=== PATIENT | male | born 1955 | race Caucasian/White ===

== ENCOUNTER 2019-01-09 10:06 | Inpatient (IN) | payer MEDICARE ==
[~2019-01-09] VITALS: Ht 172.7 cm; Wt 68.0 kg
--- NOTE | 2019-01-09 02:00 | NUR ---
Pt pulled out both IV access, refused staffs to put in a new IV. Pt continue to get up by himself without calling for assistance and continue to become agitated when staffs go in and help. Dr. Powell notified regarding pt's condition. Haldol IM x1 was ordered but not given yet at this time. At this time, pt woke up and asked for his night medications, continue to be agitated. He stated that if he gets his medication now, he will get better sleep. RN end up giving pt his haldol PO and singular PO. Pt went back to bed and made comfortable in bed. Andre give the okay to leave IV out for tonight and let pt calm down. Will continue to monitor pt closely.
[2019-01-09] MEDS ORDERED: IV NORMAL SALINE 1000ML BAG 1,000 ML IV SCH ×2 (10:26→17:00)
[2019-01-09] MEDS ORDERED: VANCOMYCIN 1GM IVPB FOR OMNI 250 ML IV ONE (10:30)
[2019-01-09] MEDS ORDERED: IV NORMAL SALINE 500ML BAG 500 ML IV ONE (10:30)
[2019-01-09 10:44] LABS: BASO % 0 % (0-3); EOS % 0 % (0-3); HEMATOCRIT 38.7 % (39.0-53.0); HEMOGLOBIN 13.7 g/dL (13.0-17.5); LYMPH # 0.4 x10^3/uL (1.0-4.8); LYMPH % 3 % (24-48); MEAN CORPUSCULAR HEMOGLOBIN 32 pg (25-35); MEAN CORPUSCULAR HGB CONC 36 g/dL (31-37); MEAN CORPUSCULAR VOLUME 91 fL (79-100); MONO # 1.9 x10^3/uL (0.0-1.1); MONO % 13 % (0-9); NEUT # 11.7 x10^3uL (1.8-7.7); NEUT % 84 % (31-73); PLATELET COUNT 182 x10^3/uL (140-400); RED BLOOD COUNT 4.26 x10^6/uL (4.30-5.70); RED CELL DISTRIBUTION WIDTH 13.9 % (11.5-14.5)
[2019-01-09] MEDS ORDERED: CARB200T PO (10:51)
[2019-01-09] MEDS ORDERED: DIPH25TA22 PO (10:51)
[2019-01-09] MEDS ORDERED: HALO10TA PO ×2 (10:51)
[2019-01-09] MEDS ORDERED: BENZOTROPINE PO (10:51)
--- NOTE | 2019-01-09 10:51 | PHYS DOC ---
Past Medical History Past Medical History: Schizophrenia Smoking: Cigarettes Adult General Chief Complaint Chief Complaint: ALTERED MENTAL STATUS HPI HPI Patient is a 63 year old male with history of schizophrenia who brought in by EMS because of altered level of consciousness. Patient used to be homeless and for the last 6 months was admitted to [facility] and usually walk with mild stumbling related to his eyesight problem with plan of cataract surgery on January 14. Patient had urinary frequency since last night and this morning did not acting like his usual and was disoriented and had problem with his walking according to reports of mental facility staff. Patient is oriented 1 and unable to give history. Review of Systems Review of Systems Unable to obtain because of mental and medical condition Current Medications Current Medications Current Medications Medications (Trade) Dose Ordered Sig/Robbi Start Time Stop Time Status Last Admin Dose Admin Acetaminophen (Tylenol) 1,000 mg 1X ONCE 01/09/19 11:00 01/09/19 11:01 DC 01/09/19 10:44 1,000 MG Nicotine (Nicoderm Cq 21mg) 1 patch 1X STAT 01/09/19 11:28 01/09/19 11:31 DC 01/09/19 11:52 1 PATCH Piperacillin Sod/ Tazobactam Sod 3.375 gm/Sodium Chloride 50 ml @ 100 mls/hr 1X ONCE 01/09/19 11:00 01/09/19 11:29 DC 01/09/19 10:43 100 MLS/HR Sodium Chloride 500 ml @ 500 mls/hr 1X ONCE 01/09/19 10:30 01/09/19 11:29 DC 01/09/19 10:30 500 MLS/HR Vancomycin HCl 1.75 gm/Sodium Chloride 500 ml @ 250 mls/hr 1X ONCE 01/09/19 11:30 01/09/19 13:29 DC 01/09/19 10:44 250 MLS/HR Allergies Allergies Allergies Coded Allergies Type Severity Reaction Last Updated Verified No Known Drug Allergies 01/09/19 No Physical Exam Physical Exam Constitutional: Well nourished, mild distress, non-toxic appearance, febrile, uncooperative and agitated. [] HENT: Normocephalic, atraumatic, oropharynx dry, no oral exudates. Eyes: PERRLA, EOMI, conjunctiva normal, no discharge. [] Neck: Normal range of motion, no tenderness, supple, no stridor, no meningeal sign. [] Cardiovascular: Tachycardia, no murmur [] Lungs & Thorax: Bilateral breath sounds clear to auscultation [] Abdomen: Bowel sounds normal, soft, no tenderness, no masses, no pulsatile masses. [] Skin: Warm, dry, no erythema, no rash. [] Back: No tenderness, no CVA tenderness. [] Extremities: No tenderness, no cyanosis, no clubbing, ROM intact, no edema. [] Neurologic: Alert and oriented X 1, moves all extremities, uncooperative for NIH scale Psychologic: Affect anxious. Current Patient Data Vital Signs Vital Signs Date Time Temp Pulse Resp B/P (MAP) Pulse Ox O2 Delivery O2 Flow Rate FiO2 01/09/19 11:48 85 20 95 01/09/19 10:06 100.7 132/58 (82) Room Air 100.7 Lab Values Laboratory Tests Test 01/09/19 10:23 White Blood Count 14.0 x10^3/uL (4.0-11.0) H Red Blood Count 4.26 x10^6/uL (4.30-5.70) L Hemoglobin 13.7 g/dL (13.0-17.5) Hematocrit 38.7 % (39.0-53.0) L Mean Corpuscular Volume 91 fL (79-100) Mean Corpuscular Hemoglobin 32 pg (25-35) Mean Corpuscular Hemoglobin Concent 36 g/dL (31-37) Red Cell Distribution Width 13.9 % (11.5-14.5) Platelet Count 182 x10^3/uL (140-400) Neutrophils (%) (Auto) 84 % (31-73) H Lymphocytes (%) (Auto) 3 % (24-48) L Monocytes (%) (Auto) 13 % (0-9) H Eosinophils (%) (Auto) 0 % (0-3) Basophils (%) (Auto) 0 % (0-3) Neutrophils # (Auto) 11.7 x10^3uL (1.8-7.7) H Lymphocytes # (Auto) 0.4 x10^3/uL (1.0-4.8) L Monocytes # (Auto) 1.9 x10^3/uL (0.0-1.1) H Eosinophils # (Auto) 0.0 x10^3/uL (0.0-0.7) Basophils # (Auto) 0.0 x10^3/uL (0.0-0.2) Prothrombin Time 15.4 SEC (11.7-14.0) H Prothrombin Time INR 1.3 (0.8-1.1) H Sodium Level 120 mmol/L (136-145) *L Potassium Level 3.9 mmol/L (3.5-5.1) Chloride Level 87 mmol/L (98-107) L Carbon Dioxide Level 22 mmol/L (21-32) Anion Gap 11 (6-14) Blood Urea Nitrogen 7 mg/dL (8-26) L Creatinine 0.8 mg/dL (0.7-1.3) Estimated GFR (Cockcroft-Gault) 98.0 BUN/Creatinine Ratio 9 (6-20) Glucose Level 106 mg/dL (70-99) H Lactic Acid Level 0.8 mmol/L (0.4-2.0) Calcium Level 8.4 mg/dL (8.5-10.1) L Total Bilirubin 0.7 mg/dL (0.2-1.0) Aspartate Amino Transferase (AST) 16 U/L (15-37) Alanine Aminotransferase (ALT) 19 U/L (16-63) Alkaline Phosphatase 71 U/L (46-116) Creatine Kinase 123 U/L (39-308) Troponin I Quantitative < 0.017 ng/mL (0.000-0.055) HI-Kdw-A-Type Natriuretic Peptide 524 pg/mL (0-124) H Total Protein 7.3 g/dL (6.4-8.2) Albumin 3.5 g/dL (3.4-5.0) Albumin/Globulin Ratio 0.9 (1.0-1.7) L Lipase 42 U/L (73-393) L Thyroid Stimulating Hormone (TSH) 0.656 uIU/mL (0.358-3.74) Ethyl Alcohol Level < 10 mg/dL (0-10) Laboratory Tests 01/09/19 10:23 Laboratory Tests 01/09/19 10:23 EKG EKG EKG interpreted by me. EKG at 1014 showed sinus tachycardia at rate of 110, normal DE and QT intervals, no acute ST and T-wave abnormalities. Radiology/Procedures Radiology/Procedures [facility] [address] [place] [address] IMAGING REPORT Signed PATIENT: SYLVIA ESPINOSA ACCOUNT: [id number] : 1955 LOCATION: ER AGE: 63 SEX: M EXAM STATUS: PRE ER ORD. PHYSICIAN: MAIKEL BRAGG MD REASON: fever, AMS PROCEDURE: PORTABLE CHEST 1V AP chest x-ray HISTORY: Fever, altered mental status. FINDINGS: Heart size normal. Tortuosity/ectasia thoracic aorta. No pneumothorax, pulmonary opacities or pleural effusions. Bones are unremarkable. IMPRESSION: No acute process. Electronically signed by: Espinoza Damon MD (01/09/2019 11:20 AM) [facility] DICTATED and SIGNED BY: ESPINOZA DAMON MD DATE: 01/09/[address] [address] IMAGING REPORT Signed PATIENT: SYLVIA ESPINOSA ACCOUNT: [id number] : 1955 LOCATION: ER AGE: 63 SEX: M EXAM STATUS: PRE ER ORD. PHYSICIAN: MAIKEL BRAGG MD REASON: fever PROCEDURE: CT HEAD WO CONTRAST CT head without contrast PQRS statement: CT scans at this facility use dose reduction including either automated exposure control, iterative reconstructions, and /or weight based radiation dosing via mA and kV modification when appropriate to reduce radiation dose to as low as reasonably achievable. HISTORY: Fever, altered mental status, no other clinical history was provided. TECHNIQUE: [address] imaging skull base to vertex was acquired. FINDINGS: No intracranial hemorrhage, mass, hydrocephalus, extra-axial fluid collections or infarction. No acute ischemic changes. Imaged orbits, mastoids and bones are unremarkable. Dependent fluid left sphenoid sinus. IMPRESSION: No acute intracranial CT abnormality. Sphenoid sinus fluid likely represents acute sinusitis. Electronically signed by: Espinoza Damon MD (01/09/2019 11:21 AM) [facility] DICTATED and SIGNED BY: ESPINOZA DAMON MD DATE: 01/09/19 1121 Course & Med Decision Making Course & Med Decision Making Pertinent Labs and Imaging studies reviewed. (See chart for details) Evaluation of patient in ER showed 63-year-old patient with history of anemia brought in because of confusion. Patient had temperature of 100.8 and tachycardia and confusion. Patient treated with IV fluid and Tylenol and antibiotic with improvement of his condition. Patient had sodium of 120 and a fter consulting with Dr. Savanah mas air deodorizer servicer at 1148 , hypertonic sodium 100 was ordered. He recommended to recheck the sodium after finishing 100 ML of hypertonic sodium and inform him regarding further treatment.Patient requiring admission for further evaluation and treatment. Discussed with Dr. Powell who is in agreement with admission. Discussed findings and plan with patient and liya castellanos, who acknowledge understanding and agreement. Dragon Disclaimer Dragon Disclaimer This electronic medical record was generated, in whole or in part, using a voice recognition dictation system. Departure Departure Impression: Primary Impression: Hyponatremia Additional Impressions: Altered level of consciousness SIRS (systemic inflammatory response syndrome) Schizophrenia Disposition: 09 ADMITTED INPATIENT (at 1129) Admitting Physician: GLEN (Dr Powell accepted admission at 1128) Condition: IMPROVED Critical Care Time Critical care time was 80 minutes exclusive of procedures. Problem Qualifiers Additional Impressions: Schizophrenia Schizophrenia type: unspecified Qualified Codes: F20.9 - Schizophrenia, unspecified MAIKEL BRAGG MD Jan 09, 2019 10:51
[2019-01-09 10:52] LABS: PROTHROMBIN TIME PATIENT 15.4 SEC (11.7-14.0)
[2019-01-09] MEDS ORDERED: LORA0.5T PO (10:52)
[2019-01-09] MEDS ORDERED: MONT10TA9 PO (10:52)
[2019-01-09] MEDS ORDERED: TRAZ150T49 PO (10:52)
[2019-01-09] MEDS ORDERED: ACETAMINOPHEN 325 MG TABLET. PO ONE (11:00)
[2019-01-09] MEDS ORDERED: PIPERACILLIN/TAZOBACTAM 3.375 GM in IV NORMAL SALINE 50ML 50 ML IV ONE (11:00)
[2019-01-09 11:07] LABS: CALCIUM 8.4 mg/dL (8.5-10.1); CREATININE 0.8 mg/dL (0.7-1.3); POTASSIUM 3.9 mmol/L (3.5-5.1)
[2019-01-09 11:21] LABS: ALBUMIN 3.5 g/dL (3.4-5.0); ALBUMIN/GLOBULIN RATIO 0.9 (1.0-1.7); TOTAL BILIRUBIN 0.7 mg/dL (0.2-1.0); TOTAL PROTEIN 7.3 g/dL (6.4-8.2)
--- NOTE | 2019-01-09 11:23 | RAD ---
AP chest x-ray HISTORY: Fever, altered mental status. FINDINGS: Heart size normal. Tortuosity/ectasia thoracic aorta. No pneumothorax, pulmonary opacities or pleural effusions. Bones are unremarkable. IMPRESSION: No acute process. Electronically signed by: Manjit Damon MD (01/09/2019 11:20 AM) [facility]
--- NOTE | 2019-01-09 11:23 | RAD ---
CT head without contrast PQRS statement: CT scans at this facility use dose reduction including either automated exposure control, iterative reconstructions, and /or weight based radiation dosing via mA and kV modification when appropriate to reduce radiation dose to as low as reasonably achievable. HISTORY: Fever, altered mental status, no other clinical history was provided. TECHNIQUE: [address] imaging skull base to vertex was acquired. FINDINGS: No intracranial hemorrhage, mass, hydrocephalus, extra-axial fluid collections or infarction. No acute ischemic changes. Imaged orbits, mastoids and bones are unremarkable. Dependent fluid left sphenoid sinus. IMPRESSION: No acute intracranial CT abnormality. Sphenoid sinus fluid likely represents acute sinusitis. Electronically signed by: Manjit Damon MD (01/09/2019 11:21 AM) [facility]
[2019-01-09] MEDS ORDERED: NICOTINE 21MG PATCH. TD STA (11:28)
[2019-01-09] MEDS ORDERED: VANCOMYCIN 1.75 GM in IV NORMAL SALINE 500ML BAG 500 ML IV ONE (11:30)
[2019-01-09 12:14] VITALS: BP 110/72
[2019-01-09] MEDS: BENZTROPINE MESYLATE 1 MG TABLET. PO SCH ×2 (12:22→21:00)
[2019-01-09] MEDS: HALOPERIDOL 5 MG TABLET. PO SCH ×2 (12:22→21:00)
[2019-01-09] MEDS: carBAMazepine 200 MG TABLET PO SCH ×2 (12:22→21:00)
[2019-01-09] MEDS ORDERED: SODIUM CHLORIDE 3 % 500 ML IV ONE (12:30)
--- NOTE | 2019-01-09 13:34 | PDOC1 ---
History and Physical Date of Admission Date of Admission DATE: 01/09/19 TIME: 13:27 Identification/Chief Complaint Chief Complaint Confusion from baseline Source Source: Caregiver, Chart review, Patient History of Present Illness History of Present Illness 63-year-old white male, poor historian, history of only schizophrenia, lives in some mental facility and has been a resident there for 6 months. Comes in or sent by staff because of more confusion or change from his baseline. Labs show hyponatremia 120 (new based on my review of old records), tachycardic febrile, blood pressure good. No infectious source yet of the fever but did get vanc zosyn from ER, empiric, Workup is still ongoing. I discussed with ER M.D. and advised renal to be called, and renal has asked for hypertonic saline 100 mL, 50 MLS per hour and recheck 2 hours later Patient is a poor historian, no family at bedside. Full code per chart, otherwise he is only oriented to self Past Medical History Psych: Schizophrenia Past Surgical History Past Surgical History: No pertinent history Family History Family History: Family History Unknown Social History Smoke: No ALCOHOL: none Drugs: None Current Problem List Problem List Problems Medical Problems: (1) Altered level of consciousness Status: Acute (2) Schizophrenia Status: Acute (3) SIRS (systemic inflammatory response syndrome) Status: Acute Current Medications Current Medications Current Medications Acetaminophen (Tylenol) 1,000 mg 1X ONCE PO Last administered on 01/09/19at 10:44; Start 01/09/19 at 11:00; Stop 01/09/19 at 11:01; Status DC Sodium Chloride 1,000 ml @ 1,000 mls/hr Q1H IV Last administered on 01/09/19at 10:44; Start 01/09/19 at 10:26; Stop 01/09/19 at 11:25; Status DC Sodium Chloride 500 ml @ 500 mls/hr 1X ONCE IV Last administered on 01/09/19at 10:30; Start 01/09/19 at 10:30; Stop 01/09/19 at 11:29; Status DC Piperacillin Sod/ Tazobactam Sod 3.375 gm/Sodium Chloride 50 ml @ 100 mls/hr 1X ONCE IV Last administered on 01/09/19at 10:43; Start 01/09/19 at 11:00; Stop 01/09/19 at 11:29; Status DC Vancomycin HCl 250 ml @ 250 mls/hr 1X ONCE IV ; Start 01/09/19 at 10:30; Stop 01/09/19 at 11:29; Status UNV Vancomycin HCl 1.75 gm/Sodium Chloride 500 ml @ 250 mls/hr 1X ONCE IV Last administered on 01/09/19at 10:44; Start 01/09/19 at 11:30; Stop 01/09/19 at 13:29 Carbamazepine (TEGretol) 200 mg BID PO ; Start 01/09/19 at 12:30 Haloperidol (Haldol) 10 mg QHS PO ; Start 01/09/19 at 21:00 Haloperidol (Haldol) 15 mg DAILY PO ; Start 01/09/19 at 12:30 Montelukast Sodium (Singulair) 10 mg QHS PO ; Start 01/09/19 at 21:00 Benztropine Mesylate (Cogentin) 1 mg BID PO ; Start 01/09/19 at 12:30 Nicotine (Nicoderm Cq 21mg) 1 patch 1X STAT TD Last administered on 01/09/19at 11:52; Start 01/09/19 at 11:28; Stop 01/09/19 at 11:31; Status DC Sodium Chloride 100 ml @ 50 mls/hr 1X ONCE IV Last administered on 01/09/19at 12:22; Start 01/09/19 at 12:30; Stop 01/09/19 at 14:29 Active Scripts Active Reported Trazodone Hcl 150 Mg Tablet 1 Tab PO QHS Montelukast Sodium Tablet (Montelukast Sodium) 10 Mg Tablet 10 Mg PO HS Lorazepam 0.5 Mg Tablet 1 Tab PO TID Haloperidol 10 Mg Tablet 1.5 Tab PO DAILY Haloperidol 10 Mg Tablet 1 Tab PO QHS Tegretol (Carbamazepine) 200 Mg Tablet 200 Mg PO BID [Benzotropine] 1 Mg PO BID Banophen (Diphenhydramine Hcl) 25 Mg Tablet 25 Mg PO BID Allergies Allergies: Coded Allergies: No Known Drug Allergies (Unverified , 01/09/19) ROS Review of System limited ROS oriented only to self Physical Exam General: Alert, Cooperative, No acute distress HEENT: Atraumatic, PERRLA, EOMI Lungs: Clear to auscultation, Normal air movement Heart: S1S2, RRR, no thrills, no rubs, no gallops, no murmurs Cardiovascular: S1, S2 Abdomen: Normal bowel sounds, Soft, No tenderness, No hepatosplenomegaly, No masses Male Genitals Exam: normal genitalia, normal prostate Rectal Exam: not examined PELVIC: Nml ext genitalia Extremities: No clubbing, No cyanosis, No edema, Normal pulses, No tenderness/swelling Skin: No rashes, No breakdown, No significant lesion Neuro: Normal gait, Normal speech, Strength at 5/5 X4 ext, Normal tone, Sensation intact, Cranial nerves 3-12 NL, Reflexes 2+ Psych/Mental Status: Mental status NL, Mood NL Vitals Vitals Vital Signs Date Time Temp Pulse Resp B/P (MAP) Pulse Ox O2 Delivery O2 Flow Rate FiO2 01/09/19 12:14 97.3 86 16 110/72 (85) 95 97.3 01/09/19 10:06 Room Air Labs Labs Laboratory Tests Test 01/09/19 10:23 White Blood Count 14.0 x10^3/uL (4.0-11.0) Red Blood Count 4.26 x10^6/uL (4.30-5.70) Hemoglobin 13.7 g/dL (13.0-17.5) Hematocrit 38.7 % (39.0-53.0) Mean Corpuscular Volume 91 fL (79-100) Mean Corpuscular Hemoglobin 32 pg (25-35) Mean Corpuscular Hemoglobin Concent 36 g/dL (31-37) Red Cell Distribution Width 13.9 % (11.5-14.5) Platelet Count 182 x10^3/uL (140-400) Neutrophils (%) (Auto) 84 % (31-73) Lymphocytes (%) (Auto) 3 % (24-48) Monocytes (%) (Auto) 13 % (0-9) Eosinophils (%) (Auto) 0 % (0-3) Basophils (%) (Auto) 0 % (0-3) Neutrophils # (Auto) 11.7 x10^3uL (1.8-7.7) Lymphocytes # (Auto) 0.4 x10^3/uL (1.0-4.8) Monocytes # (Auto) 1.9 x10^3/uL (0.0-1.1) Eosinophils # (Auto) 0.0 x10^3/uL (0.0-0.7) Basophils # (Auto) 0.0 x10^3/uL (0.0-0.2) Prothrombin Time 15.4 SEC (11.7-14.0) Prothromb Time International Ratio 1.3 (0.8-1.1) Sodium Level 120 mmol/L (136-145) Potassium Level 3.9 mmol/L (3.5-5.1) Chloride Level 87 mmol/L (98-107) Carbon Dioxide Level 22 mmol/L (21-32) Anion Gap 11 (6-14) Blood Urea Nitrogen 7 mg/dL (8-26) Creatinine 0.8 mg/dL (0.7-1.3) Estimated GFR (Cockcroft-Gault) 98.0 BUN/Creatinine Ratio 9 (6-20) Glucose Level 106 mg/dL (70-99) Lactic Acid Level 0.8 mmol/L (0.4-2.0) Calcium Level 8.4 mg/dL (8.5-10.1) Total Bilirubin 0.7 mg/dL (0.2-1.0) Aspartate Amino Transf (AST/SGOT) 16 U/L (15-37) Alanine Aminotransferase (ALT/SGPT) 19 U/L (16-63) Alkaline Phosphatase 71 U/L (46-116) Creatine Kinase 123 U/L (39-308) Troponin I Quantitative < 0.017 ng/mL (0.000-0.055) NC-Pic-Y-Type Natriuretic Peptide 524 pg/mL (0-124) Total Protein 7.3 g/dL (6.4-8.2) Albumin 3.5 g/dL (3.4-5.0) Albumin/Globulin Ratio 0.9 (1.0-1.7) Lipase 42 U/L (73-393) Thyroid Stimulating Hormone (TSH) 0.656 uIU/mL (0.358-3.74) Ethyl Alcohol Level < 10 mg/dL (0-10) Laboratory Tests Test 01/09/19 10:23 White Blood Count 14.0 x10^3/uL (4.0-11.0) Red Blood Count 4.26 x10^6/uL (4.30-5.70) Hemoglobin 13.7 g/dL (13.0-17.5) Hematocrit 38.7 % (39.0-53.0) Mean Corpuscular Volume 91 fL (79-100) Mean Corpuscular Hemoglobin 32 pg (25-35) Mean Corpuscular Hemoglobin Concent 36 g/dL (31-37) Red Cell Distribution Width 13.9 % (11.5-14.5) Platelet Count 182 x10^3/uL (140-400) Neutrophils (%) (Auto) 84 % (31-73) Lymphocytes (%) (Auto) 3 % (24-48) Monocytes (%) (Auto) 13 % (0-9) Eosinophils (%) (Auto) 0 % (0-3) Basophils (%) (Auto) 0 % (0-3) Neutrophils # (Auto) 11.7 x10^3uL (1.8-7.7) Lymphocytes # (Auto) 0.4 x10^3/uL (1.0-4.8) Monocytes # (Auto) 1.9 x10^3/uL (0.0-1.1) Eosinophils # (Auto) 0.0 x10^3/uL (0.0-0.7) Basophils # (Auto) 0.0 x10^3/uL (0.0-0.2) Prothrombin Time 15.4 SEC (11.7-14.0) Prothromb Time International Ratio 1.3 (0.8-1.1) Sodium Level 120 mmol/L (136-145) Potassium Level 3.9 mmol/L (3.5-5.1) Chloride Level 87 mmol/L (98-107) Carbon Dioxide Level 22 mmol/L (21-32) Anion Gap 11 (6-14) Blood Urea Nitrogen 7 mg/dL (8-26) Creatinine 0.8 mg/dL (0.7-1.3) Estimated GFR (Cockcroft-Gault) 98.0 BUN/Creatinine Ratio 9 (6-20) Glucose Level 106 mg/dL (70-99) Lactic Acid Level 0.8 mmol/L (0.4-2.0) Calcium Level 8.4 mg/dL (8.5-10.1) Total Bilirubin 0.7 mg/dL (0.2-1.0) Aspartate Amino Transf (AST/SGOT) 16 U/L (15-37) Alanine Aminotransferase (ALT/SGPT) 19 U/L (16-63) Alkaline Phosphatase 71 U/L (46-116) Creatine Kinase 123 U/L (39-308) Troponin I Quantitative < 0.017 ng/mL (0.000-0.055) XX-Kco-P-Type Natriuretic Peptide 524 pg/mL (0-124) Total Protein 7.3 g/dL (6.4-8.2) Albumin 3.5 g/dL (3.4-5.0) Albumin/Globulin Ratio 0.9 (1.0-1.7) Lipase 42 U/L (73-393) Thyroid Stimulating Hormone (TSH) 0.656 uIU/mL (0.358-3.74) Ethyl Alcohol Level < 10 mg/dL (0-10) VTE Prophylaxis Ordered VTE Prophylaxis Devices: Yes VTE Pharmacological Prophylaxi: Yes Assessment/Plan Assessment/Plan Severe hyponatremia Acute encephalopathy in the background of severe hyponatremia-metabolic [facility] resident SIRS POA Febrile tachycardic but no source yet FULL CODE PLAN:Hook to telemetry Full code Hypertonic saline 100 mL only then recheck NA 2 hours later-to run at 50 mL an hour Okay for regular diet I Reconciled home meds Recheck labs tomorrow Infectious workup-I did not continue antibiotics for now as so far no source Monitor fevers Further recs pending his course Discussed with FISH MELGAR MD Jan 09, 2019 13:33
--- NOTE | 2019-01-09 15:10 | NUR ---
Pt arrived to unit by yesica at 1155, from ED, report received from CLARI Murcia. Admission Dx AMS, hyponatremia at 120, fever and UTI confirmed a few hours after admission. No family present on admission but ED nurse and this RN spoke with Pt's Flask Fitter who is also his emergency contact, Alexa. Pt has a flat affect and does not respond to most of the questions he is asked and at times replies to a question with another question such as "why are you asking me that?" or "do you really think I am going to answer that?". Otherwise Pt is cooperative with nursing care but rather impulsive and does not use call light when he needs to get up to use the restroom. Pt considered at risk for falls d/t generalized weakness and unsteady gait. Per 1500 VS, Pt had a temp of 103.0. This finding along with the WBC count, tachycardia and his UTI had Pt trigger positive on his sepsis screen. ICU pager called, no call received. Dr Powell paged, she entered orders for ID consultation and Tylenol. Blood cultures were drawn by lab and urine specimen was sent and reflected to culture. Pt's Flask Fitter provided admission and medication information to ED nurse over the phone and this nurse called to verify a few things. Pt did not provide any information regarding his medical history other than the fact that he smokes more than a pack of cigarettes a day. IVFs infusing as ordered. Admission assessment in progress.
[2019-01-09] MEDS: NICOTINE 21MG PATCH. TD SCH (15:30)
[2019-01-09 15:57] LABS: CALCIUM 8.3 mg/dL (8.5-10.1); CREATININE 0.9 mg/dL (0.7-1.3); GFR 85.5; POTASSIUM 3.8 mmol/L (3.5-5.1)
[2019-01-09 15:58] VITALS: BP 111/64
[2019-01-09 16:21] LABS: BILIRUBIN,URINE NEGATIVE (NEG); CLARITY,URINE CLEAR; COLOR,URINE YELLOW; NITRITE,URINE POSITIVE (NEG); PROTEIN,URINE 100 mg/dL (NEG-TRACE)
[2019-01-09 16:29] LABS: AMPHETAMINE/METHAMPHETAMINE NEG (NEG); BARBITURATES NEG (NEG); BENZODIAZEPINES NEG (NEG); CANNABINOIDS NEG (NEG); COCAINE NEG (NEG); METHADONE NEG (NEG); OPIATES NEG (NEG); PHENCYCLIDINE NEG (NEG)
[2019-01-09 16:34] LABS: BACTERIA,URINE MANY /HPF (0-FEW); SQUAMOUS EPITHELIAL CELL,UR FEW /LPF; WBC,URINE TNTC /HPF (0-4)
[2019-01-09] MEDS: ACETAMINOPHEN 325 MG TABLET. PO PRN (17:57)
[2019-01-09 19:05] VITALS: BP 103/56
[2019-01-09] MEDS: MONTELUKAST SODIUM 10 MG TABLET. PO SCH (21:00)
--- NOTE | 2019-01-09 21:04 | NUR ---
Patient refused all of his schedule 2100 medications at this time. Pt stated that he does not want to take anything at this time and no one can make him take it if he don't want to. Will continue to monitor pt closely.
[2019-01-09 23:48] VITALS: BP 101/58
[2019-01-10] MEDS ORDERED: HALOPERIDOL LACTATE 5 MG/ML VIAL. IM ONE
[2019-01-10] MEDS: MONTELUKAST SODIUM 10 MG TABLET. PO SCH (00:50)
[2019-01-10] MEDS: HALOPERIDOL 5 MG TABLET. PO SCH ×2 (00:50→09:22)
[2019-01-10] MEDS: ACETAMINOPHEN 325 MG TABLET. PO PRN (00:50)
[2019-01-10 03:05] VITALS: BP 112/60
[2019-01-10 07:00] VITALS: BP 103/69
[2019-01-10 08:36] LABS: BASO % 0 % (0-3); EOS % 0 % (0-3); HEMATOCRIT 34.9 % (39.0-53.0); HEMOGLOBIN 12.4 g/dL (13.0-17.5); LYMPH # 0.4 x10^3/uL (1.0-4.8); LYMPH % 3 % (24-48); MEAN CORPUSCULAR HEMOGLOBIN 33 pg (25-35); MEAN CORPUSCULAR HGB CONC 36 g/dL (31-37); MEAN CORPUSCULAR VOLUME 92 fL (79-100); MONO # 1.4 x10^3/uL (0.0-1.1); MONO % 14 % (0-9); NEUT # 8.8 x10^3uL (1.8-7.7); NEUT % 83 % (31-73); PLATELET COUNT 158 x10^3/uL (140-400); RED BLOOD COUNT 3.81 x10^6/uL (4.30-5.70); RED CELL DISTRIBUTION WIDTH 13.9 % (11.5-14.5); WHITE BLOOD COUNT 10.6 x10^3/uL (4.0-11.0)
[2019-01-10 08:54] LABS: CALCIUM 8.1 mg/dL (8.5-10.1); CREATININE 0.6 mg/dL (0.7-1.3); GFR 136.5; POTASSIUM 3.7 mmol/L (3.5-5.1)
[2019-01-10] MEDS: BENZTROPINE MESYLATE 1 MG TABLET. PO SCH (09:22)
[2019-01-10] MEDS: carBAMazepine 200 MG TABLET PO SCH (09:23)
[2019-01-10] MEDS: NICOTINE 21MG PATCH. TD SCH (09:26)
[2019-01-10 09:35] LABS: % BANDS 2 % (0-9); % LYMPHS 3 % (24-48); % MONOS 9 % (0-10); % SEGS 86 % (35-66); PLT ESTIMATE ADEQUATE (ADEQUATE)
[2019-01-10 11:00] VITALS: BP 92/57
--- NOTE | 2019-01-10 12:17 | PDOC2 ---
CONSULT Date of Consult Date of Consult DATE: 01/10/19 TIME: 12:11 Reason for Consult Reason for Consult: LOW NA Referring Physician Referring Physician: PAOLA History of Present Illness Reason for Visit: THIS IS A 63 YR OLD WITH A HX OF SCHIZOPHRENIA BROUGHT IN DUE TO CONFUSION. NOTED TO HAVE SOME FEVERS AND TACHYCARDIA ON ADMIT WELL. ALSO NOTED TO HAVE A NA OF 120 ON ADMIT AND HENCE THE RENAL CONSULT. ON MULTIPLE PSYCH MEDS. HE CANNOT GIVE ANY HX. NO PRIOR HX OF ANY LOW NA. SOME REPORTS OF POSSIBLE EXCESSIVE WATER INTAKE. NOT ON ANY DIURETICS. HEAD CT WAS NEG Past Medical History Psych: Schizophrenia Past Surgical History Past Surgical History: No pertinent history Family History Family History: Family History Unknown Social History No ALCOHOL: none Drugs: None Lives: Group Home Current Problem List Problem List Problems Medical Problems: (1) Altered level of consciousness Status: Acute (2) Schizophrenia Status: Acute (3) SIRS (systemic inflammatory response syndrome) Status: Acute Current Medications Current Medications Current Medications Acetaminophen (Tylenol) 1,000 mg 1X ONCE PO Last administered on 01/09/19at 10:44; Start 01/09/19 at 11:00; Stop 01/09/19 at 11:01; Status DC Sodium Chloride 1,000 ml @ 1,000 mls/hr Q1H IV Last administered on 01/09/19at 10:44; Start 01/09/19 at 10:26; Stop 01/09/19 at 11:25; Status DC Sodium Chloride 500 ml @ 500 mls/hr 1X ONCE IV Last administered on 01/09/19at 10:30; Start 01/09/19 at 10:30; Stop 01/09/19 at 11:29; Status DC Piperacillin Sod/ Tazobactam Sod 3.375 gm/Sodium Chloride 50 ml @ 100 mls/hr 1X ONCE IV Last administered on 01/09/19at 10:43; Start 01/09/19 at 11:00; Stop 01/09/19 at 11:29; Status DC Vancomycin HCl 250 ml @ 250 mls/hr 1X ONCE IV ; Start 01/09/19 at 10:30; Stop 01/09/19 at 11:29; Status UNV Vancomycin HCl 1.75 gm/Sodium Chloride 500 ml @ 250 mls/hr 1X ONCE IV Last administered on 01/09/19at 10:44; Start 01/09/19 at 11:30; Stop 01/09/19 at 13:29; Status DC Carbamazepine (TEGretol) 200 mg BID PO Last administered on 01/10/19 09:23; Start 01/09/19 at 12:30 Haloperidol (Haldol) 10 mg QHS PO Last administered on 01/10/19 00:50; Start 01/09/19 at 21:00 Haloperidol (Haldol) 15 mg DAILY PO Last administered on 01/10/19 09:22; Start 01/09/19 at 12:30 Montelukast Sodium (Singulair) 10 mg QHS PO Last administered on 01/10/19 00:50; Start 01/09/19 at 21:00 Benztropine Mesylate (Cogentin) 1 mg BID PO Last administered on 01/10/19 09:22; Start 01/09/19 at 12:30 Nicotine (Nicoderm Cq 21mg) 1 patch 1X STAT TD Last administered on 01/09/19at 11:52; Start 01/09/19 at 11:28; Stop 01/09/19 at 11:31; Status DC Sodium Chloride 100 ml @ 50 mls/hr 1X ONCE IV Last administered on 01/09/19at 12:22; Start 01/09/19 at 12:30; Stop 01/09/19 at 14:29; Status DC Nicotine (Nicoderm Cq 21mg) 1 patch DAILY TD Last administered on 01/10/19 09:26; Start 01/09/19 at 15:30 Acetaminophen (Tylenol) 650 mg PRN Q6HRS PRN PO MILD PAIN / TEMP Last administered on 01/10/19 00:50; Start 01/09/19 at 16:45 Sodium Chloride 1,000 ml @ 60 mls/hr [id number] IV Last administered on 01/09/19at 18:07; Start 01/09/19 at 17:00 Haloperidol Lactate (Haldol Inj) 5 mg 1X ONCE IM ; Start 01/10/19 at 00:00; Stop 01/10/19 at 00:01; Status DC Active Scripts Active Reported Trazodone Hcl 150 Mg Tablet 1 Tab PO QHS Montelukast Sodium Tablet (Montelukast Sodium) 10 Mg Tablet 10 Mg PO HS Lorazepam 0.5 Mg Tablet 1 Tab PO TID Haloperidol 10 Mg Tablet 1.5 Tab PO DAILY Haloperidol 10 Mg Tablet 1 Tab PO QHS Tegretol (Carbamazepine) 200 Mg Tablet 200 Mg PO BID [Benzotropine] 1 Mg PO BID Banophen (Diphenhydramine Hcl) 25 Mg Tablet 25 Mg PO BID Allergies Allergies: Coded Allergies: No Known Drug Allergies (Unverified , 01/09/19) ROS Review of System UNABLE TO OBTAIN Physical Exam General: Cooperative, No acute distress HEENT: Atraumatic, PERRLA, EOMI, Mucous membr. moist/pink Lungs: Clear to auscultation, Normal air movement Heart: Regular rate Abdomen: Normal bowel sounds, Soft Extremities: No clubbing, No cyanosis Skin: No breakdown Neuro: Other (CONFUSED) Psych/Mental Status: Other (CONFUSED) MUSCULOSKELETAL: No deformity, No swelling Vitals VITALS Vital Signs Date Time Temp Pulse Resp B/P (MAP) Pulse Ox O2 Delivery O2 Flow Rate FiO2 01/10/19 11:00 98.3 74 20 92/57 (69) 95 Room Air 98.3 Labs Labs Laboratory Tests Test 01/09/19 10:23 01/09/19 13:30 01/09/19 15:10 01/10/19 08:10 White Blood Count 14.0 x10^3/uL (4.0-11.0) 10.6 x10^3/uL (4.0-11.0) Red Blood Count 4.26 x10^6/uL (4.30-5.70) 3.81 x10^6/uL (4.30-5.70) Hemoglobin 13.7 g/dL (13.0-17.5) 12.4 g/dL (13.0-17.5) Hematocrit 38.7 % (39.0-53.0) 34.9 % (39.0-53.0) Mean Corpuscular Volume 91 fL (79-100) 92 fL (79-100) Mean Corpuscular Hemoglobin 32 pg (25-35) 33 pg (25-35) Mean Corpuscular Hemoglobin Concent 36 g/dL (31-37) 36 g/dL (31-37) Red Cell Distribution Width 13.9 % (11.5-14.5) 13.9 % (11.5-14.5) Platelet Count 182 x10^3/uL (140-400) 158 x10^3/uL (140-400) Neutrophils (%) (Auto) 84 % (31-73) 83 % (31-73) Lymphocytes (%) (Auto) 3 % (24-48) 3 % (24-48) Monocytes (%) (Auto) 13 % (0-9) 14 % (0-9) Eosinophils (%) (Auto) 0 % (0-3) 0 % (0-3) Basophils (%) (Auto) 0 % (0-3) 0 % (0-3) Neutrophils # (Auto) 11.7 x10^3uL (1.8-7.7) 8.8 x10^3uL (1.8-7.7) Lymphocytes # (Auto) 0.4 x10^3/uL (1.0-4.8) 0.4 x10^3/uL (1.0-4.8) Monocytes # (Auto) 1.9 x10^3/uL (0.0-1.1) 1.4 x10^3/uL (0.0-1.1) Eosinophils # (Auto) 0.0 x10^3/uL (0.0-0.7) 0.0 x10^3/uL (0.0-0.7) Basophils # (Auto) 0.0 x10^3/uL (0.0-0.2) 0.0 x10^3/uL (0.0-0.2) Prothrombin Time 15.4 SEC (11.7-14.0) Prothromb Time International Ratio 1.3 (0.8-1.1) Sodium Level 120 mmol/L (136-145) 126 mmol/L (136-145) 129 mmol/L (136-145) Potassium Level 3.9 mmol/L (3.5-5.1) 3.8 mmol/L (3.5-5.1) 3.7 mmol/L (3.5-5.1) Chloride Level 87 mmol/L (98-107) 92 mmol/L (98-107) 95 mmol/L (98-107) Carbon Dioxide Level 22 mmol/L (21-32) 27 mmol/L (21-32) 24 mmol/L (21-32) Anion Gap 11 (6-14) 7 (6-14) 10 (6-14) Blood Urea Nitrogen 7 mg/dL (8-26) 8 mg/dL (8-26) 8 mg/dL (8-26) Creatinine 0.8 mg/dL (0.7-1.3) 0.9 mg/dL (0.7-1.3) 0.6 mg/dL (0.7-1.3) Estimated GFR (Cockcroft-Gault) 98.0 85.5 136.5 BUN/Creatinine Ratio 9 (6-20) Glucose Level 106 mg/dL (70-99) 114 mg/dL (70-99) 92 mg/dL (70-99) Lactic Acid Level 0.8 mmol/L (0.4-2.0) Calcium Level 8.4 mg/dL (8.5-10.1) 8.3 mg/dL (8.5-10.1) 8.1 mg/dL (8.5-10.1) Total Bilirubin 0.7 mg/dL (0.2-1.0) Aspartate Amino Transf (AST/SGOT) 16 U/L (15-37) Alanine Aminotransferase (ALT/SGPT) 19 U/L (16-63) Alkaline Phosphatase 71 U/L (46-116) Creatine Kinase 123 U/L (39-308) Troponin I Quantitative < 0.017 ng/mL (0.000-0.055) UP-Psc-P-Type Natriuretic Peptide 524 pg/mL (0-124) Total Protein 7.3 g/dL (6.4-8.2) Albumin 3.5 g/dL (3.4-5.0) Albumin/Globulin Ratio 0.9 (1.0-1.7) Lipase 42 U/L (73-393) Thyroid Stimulating Hormone (TSH) 0.656 uIU/mL (0.358-3.74) Ethyl Alcohol Level < 10 mg/dL (0-10) Urine Collection Type Unknown Urine Color Yellow Urine Clarity Clear Urine pH 6.0 Urine Specific [place] 1.015 Urine Protein 100 mg/dL (NEG-TRACE) Urine Glucose (UA) Negative mg/dL (NEG) Urine Ketones (Stick) Trace mg/dL (NEG) Urine Blood Moderate (NEG) Urine Nitrite Positive (NEG) Urine Bilirubin Negative (NEG) Urine Urobilinogen Dipstick 1.0 mg/dL (0.2 mg/dL) Urine Leukocyte Esterase Moderate (NEG) Urine RBC 6-10 /HPF (0-2) Urine WBC Tntc /HPF (0-4) Urine Squamous Epithelial Cells Few /LPF Urine Bacteria Many /HPF (0-FEW) Urine Mucus Slight /LPF Urine Opiates Screen Neg (NEG) Urine Methadone Screen Neg (NEG) Urine Barbiturates Neg (NEG) Urine Phencyclidine Screen Neg (NEG) Urine Amphetamine/Methamphetamine Neg (NEG) Urine Benzodiazepines Screen Neg (NEG) Urine Cocaine Screen Neg (NEG) Urine Cannabinoids Screen Neg (NEG) Urine Ethyl Alcohol Neg (NEG) Segmented Neutrophils % 86 % (35-66) Band Neutrophils % 2 % (0-9) Lymphocytes % 3 % (24-48) Monocytes % 9 % (0-10) Platelet Estimate Adequate (ADEQUATE) Laboratory Tests Test 01/09/19 13:30 01/09/19 15:10 01/10/19 08:10 Urine Collection Type Unknown Urine Color Yellow Urine Clarity Clear Urine pH 6.0 Urine Specific [place] 1.015 Urine Protein 100 mg/dL (NEG-TRACE) Urine Glucose (UA) Negative mg/dL (NEG) Urine Ketones (Stick) Trace mg/dL (NEG) Urine Blood Moderate (NEG) Urine Nitrite Positive (NEG) Urine Bilirubin Negative (NEG) Urine Urobilinogen Dipstick 1.0 mg/dL (0.2 mg/dL) Urine Leukocyte Esterase Moderate (NEG) Urine RBC 6-10 /HPF (0-2) Urine WBC Tntc /HPF (0-4) Urine Squamous Epithelial Cells Few /LPF Urine Bacteria Many /HPF (0-FEW) Urine Mucus Slight /LPF Urine Opiates Screen Neg (NEG) Urine Methadone Screen Neg (NEG) Urine Barbiturates Neg (NEG) Urine Phencyclidine Screen Neg (NEG) Urine Amphetamine/Methamphetamine Neg (NEG) Urine Benzodiazepines Screen Neg (NEG) Urine Cocaine Screen Neg (NEG) Urine Cannabinoids Screen Neg (NEG) Urine Ethyl Alcohol Neg (NEG) Sodium Level 126 mmol/L (136-145) 129 mmol/L (136-145) Potassium Level 3.8 mmol/L (3.5-5.1) 3.7 mmol/L (3.5-5.1) Chloride Level 92 mmol/L (98-107) 95 mmol/L (98-107) Carbon Dioxide Level 27 mmol/L (21-32) 24 mmol/L (21-32) Anion Gap 7 (6-14) 10 (6-14) Blood Urea Nitrogen 8 mg/dL (8-26) 8 mg/dL (8-26) Creatinine 0.9 mg/dL (0.7-1.3) 0.6 mg/dL (0.7-1.3) Estimated GFR (Cockcroft-Gault) 85.5 136.5 Glucose Level 114 mg/dL (70-99) 92 mg/dL (70-99) Calcium Level 8.3 mg/dL (8.5-10.1) 8.1 mg/dL (8.5-10.1) White Blood Count 10.6 x10^3/uL (4.0-11.0) Red Blood Count 3.81 x10^6/uL (4.30-5.70) Hemoglobin 12.4 g/dL (13.0-17.5) Hematocrit 34.9 % (39.0-53.0) Mean Corpuscular Volume 92 fL (79-100) Mean Corpuscular Hemoglobin 33 pg (25-35) Mean Corpuscular Hemoglobin Concent 36 g/dL (31-37) Red Cell Distribution Width 13.9 % (11.5-14.5) Platelet Count 158 x10^3/uL (140-400) Neutrophils (%) (Auto) 83 % (31-73) Lymphocytes (%) (Auto) 3 % (24-48) Monocytes (%) (Auto) 14 % (0-9) Eosinophils (%) (Auto) 0 % (0-3) Basophils (%) (Auto) 0 % (0-3) Neutrophils # (Auto) 8.8 x10^3uL (1.8-7.7) Lymphocytes # (Auto) 0.4 x10^3/uL (1.0-4.8) Monocytes # (Auto) 1.4 x10^3/uL (0.0-1.1) Eosinophils # (Auto) 0.0 x10^3/uL (0.0-0.7) Basophils # (Auto) 0.0 x10^3/uL (0.0-0.2) Segmented Neutrophils % 86 % (35-66) Band Neutrophils % 2 % (0-9) Lymphocytes % 3 % (24-48) Monocytes % 9 % (0-10) Platelet Estimate Adequate (ADEQUATE) Assessment/Plan Assessment/Plan IMP SEVERE HYPONATREMIA-SIADH FROM MEDS AND PROB EXCESS WATER INTAKE WELL SCHIZOPHRENIA ACUTE MET ENCEPHALOPATHY PLAN CURB WATER INTAKE IF POSSIBLE 3% SALINE GIVEN DUE TO SYMPTOMS MAY NEED HALF-WAY DECLOMYCIN D/W ATTENDING JAZMYN MARINO MD Jan 10, 2019 12:17
--- NOTE | 2019-01-10 12:20 | SNU/HH DC ---
DISCHARGE ORDERS DISCHARGE INFORMATION: DISCHARGE DATE: Jan 10, 2019 FINAL DIAGNOSIS Problems Medical Problems: (1) Altered level of consciousness Status: Acute (2) Schizophrenia Status: Acute (3) SIRS (systemic inflammatory response syndrome) Status: Acute CONDITION ON DISCHARGE: Stable CODE STATUS: Code Status: Full [facility]: SNF STAY <30 DAYS: Yes HOSPICE: HOSPICE: No HOSPICE EVAL & TREAT: No LTAC: ADMIT TO LTAC: No POST DISCHARGE ORDERS: ACTIVITY ORDERS: Other, see below DIET AFTER DISCHARGE: Regular CHECKS AFTER DISCHARGE: CHECKS AFTER DISCHARGE: Check blood press - daily FOLLOW-UP: PHYSICIAN FOLLOW-UP: psych MD to address psych meds, lots can cause hyponatremia DISCHARGE MEDICATIONS: Home Meds Reported Medications Trazodone Hcl (TRAZODONE HCL) 150 Mg Tablet, 1 TAB PO QHS, #30 TAB 1 Refill 01/09/19 Montelukast Sodium (MONTELUKAST SODIUM TABLET) 10 Mg Tablet, 10 MG PO HS for FOR ASTHMA, #30 TAB 0 Refills 01/09/19 Lorazepam (LORAZEPAM) 0.5 Mg Tablet, 1 TAB PO TID, #90 TAB 01/09/19 Haloperidol (HALOPERIDOL) 10 Mg Tablet, 1.5 TAB PO DAILY, #60 TAB 2 Refills 01/09/19 Haloperidol (HALOPERIDOL) 10 Mg Tablet, 1 TAB PO QHS, #30 TAB 2 Refills 01/09/19 Carbamazepine (TEGRETOL) 200 Mg Tablet, 200 MG PO BID, TAB 01/09/19 [Benzotropine] No Conflict Check, 1 MG PO BID 01/09/19 Diphenhydramine Hcl (BANOPHEN) 25 Mg Tablet, 25 MG PO BID, TAB 01/09/19 FISH GUEVARA MD Jan 10, 2019 12:20
--- NOTE | 2019-01-10 12:23 | PDOC3 ---
Discharge Summary Visit Information Date of Admission: Jan 09, 2019 Date of Discharge: Jan 10, 2019 Admitting Diagnosis Comment: Severe hyponatremia on multiple psych meds Acute encephalopathy in the background of severe hyponatremia-metabolic Schizophrenia [facility] resident SIRS POA Febrile tachycardic but no source yet FULL CODE Final Diagnosis Problems Medical Problems: (1) Altered level of consciousness Status: Acute (2) Schizophrenia Status: Acute (3) SIRS (systemic inflammatory response syndrome) Status: Acute Brief Hospital Course Allergies Allergies Coded Allergies Type Severity Reaction Last Updated Verified No Known Drug Allergies 01/09/19 No Vital Signs Vital Signs Date Time Temp Pulse Resp B/P (MAP) Pulse Ox O2 Delivery O2 Flow Rate FiO2 01/10/19 11:00 98.3 74 20 92/57 (69) 95 Room Air 98.3 Lab Results Laboratory Tests Test 01/09/19 10:23 01/09/19 13:30 01/09/19 15:10 01/10/19 08:10 White Blood Count 14.0 x10^3/uL (4.0-11.0) 10.6 x10^3/uL (4.0-11.0) Red Blood Count 4.26 x10^6/uL (4.30-5.70) 3.81 x10^6/uL (4.30-5.70) Hemoglobin 13.7 g/dL (13.0-17.5) 12.4 g/dL (13.0-17.5) Hematocrit 38.7 % (39.0-53.0) 34.9 % (39.0-53.0) Mean Corpuscular Volume 91 fL (79-100) 92 fL (79-100) Mean Corpuscular Hemoglobin 32 pg (25-35) 33 pg (25-35) Mean Corpuscular Hemoglobin Concent 36 g/dL (31-37) 36 g/dL (31-37) Red Cell Distribution Width 13.9 % (11.5-14.5) 13.9 % (11.5-14.5) Platelet Count 182 x10^3/uL (140-400) 158 x10^3/uL (140-400) Neutrophils (%) (Auto) 84 % (31-73) 83 % (31-73) Lymphocytes (%) (Auto) 3 % (24-48) 3 % (24-48) Monocytes (%) (Auto) 13 % (0-9) 14 % (0-9) Eosinophils (%) (Auto) 0 % (0-3) 0 % (0-3) Basophils (%) (Auto) 0 % (0-3) 0 % (0-3) Neutrophils # (Auto) 11.7 x10^3uL (1.8-7.7) 8.8 x10^3uL (1.8-7.7) Lymphocytes # (Auto) 0.4 x10^3/uL (1.0-4.8) 0.4 x10^3/uL (1.0-4.8) Monocytes # (Auto) 1.9 x10^3/uL (0.0-1.1) 1.4 x10^3/uL (0.0-1.1) Eosinophils # (Auto) 0.0 x10^3/uL (0.0-0.7) 0.0 x10^3/uL (0.0-0.7) Basophils # (Auto) 0.0 x10^3/uL (0.0-0.2) 0.0 x10^3/uL (0.0-0.2) Prothrombin Time 15.4 SEC (11.7-14.0) Prothromb Time International Ratio 1.3 (0.8-1.1) Sodium Level 120 mmol/L (136-145) 126 mmol/L (136-145) 129 mmol/L (136-145) Potassium Level 3.9 mmol/L (3.5-5.1) 3.8 mmol/L (3.5-5.1) 3.7 mmol/L (3.5-5.1) Chloride Level 87 mmol/L (98-107) 92 mmol/L (98-107) 95 mmol/L (98-107) Carbon Dioxide Level 22 mmol/L (21-32) 27 mmol/L (21-32) 24 mmol/L (21-32) Anion Gap 11 (6-14) 7 (6-14) 10 (6-14) Blood Urea Nitrogen 7 mg/dL (8-26) 8 mg/dL (8-26) 8 mg/dL (8-26) Creatinine 0.8 mg/dL (0.7-1.3) 0.9 mg/dL (0.7-1.3) 0.6 mg/dL (0.7-1.3) Estimated GFR (Cockcroft-Gault) 98.0 85.5 136.5 BUN/Creatinine Ratio 9 (6-20) Glucose Level 106 mg/dL (70-99) 114 mg/dL (70-99) 92 mg/dL (70-99) Lactic Acid Level 0.8 mmol/L (0.4-2.0) Calcium Level 8.4 mg/dL (8.5-10.1) 8.3 mg/dL (8.5-10.1) 8.1 mg/dL (8.5-10.1) Total Bilirubin 0.7 mg/dL (0.2-1.0) Aspartate Amino Transf (AST/SGOT) 16 U/L (15-37) Alanine Aminotransferase (ALT/SGPT) 19 U/L (16-63) Alkaline Phosphatase 71 U/L (46-116) Creatine Kinase 123 U/L (39-308) Troponin I Quantitative < 0.017 ng/mL (0.000-0.055) ZX-[id number]-Type Natriuretic Peptide 524 pg/mL (0-124) Total Protein 7.3 g/dL (6.4-8.2) Albumin 3.5 g/dL (3.4-5.0) Albumin/Globulin Ratio 0.9 (1.0-1.7) Lipase 42 U/L (73-393) Thyroid Stimulating Hormone (TSH) 0.656 uIU/mL (0.358-3.74) Ethyl Alcohol Level < 10 mg/dL (0-10) Urine Collection Type Unknown Urine Color Yellow Urine Clarity Clear Urine pH 6.0 Urine Specific [place] 1.015 Urine Protein 100 mg/dL (NEG-TRACE) Urine Glucose (UA) Negative mg/dL (NEG) Urine Ketones (Stick) Trace mg/dL (NEG) Urine Blood Moderate (NEG) Urine Nitrite Positive (NEG) Urine Bilirubin Negative (NEG) Urine Urobilinogen Dipstick 1.0 mg/dL (0.2 mg/dL) Urine Leukocyte Esterase Moderate (NEG) Urine RBC 6-10 /HPF (0-2) Urine WBC Tntc /HPF (0-4) Urine Squamous Epithelial Cells Few /LPF Urine Bacteria Many /HPF (0-FEW) Urine Mucus Slight /LPF Urine Opiates Screen Neg (NEG) Urine Methadone Screen Neg (NEG) Urine Barbiturates Neg (NEG) Urine Phencyclidine Screen Neg (NEG) Urine Amphetamine/Methamphetamine Neg (NEG) Urine Benzodiazepines Screen Neg (NEG) Urine Cocaine Screen Neg (NEG) Urine Cannabinoids Screen Neg (NEG) Urine Ethyl Alcohol Neg (NEG) Segmented Neutrophils % 86 % (35-66) Band Neutrophils % 2 % (0-9) Lymphocytes % 3 % (24-48) Monocytes % 9 % (0-10) Platelet Estimate Adequate (ADEQUATE) Laboratory Tests Test 01/09/19 13:30 01/09/19 15:10 01/10/19 08:10 Urine Collection Type Unknown Urine Color Yellow Urine Clarity Clear Urine pH 6.0 Urine Specific [place] 1.015 Urine Protein 100 mg/dL (NEG-TRACE) Urine Glucose (UA) Negative mg/dL (NEG) Urine Ketones (Stick) Trace mg/dL (NEG) Urine Blood Moderate (NEG) Urine Nitrite Positive (NEG) Urine Bilirubin Negative (NEG) Urine Urobilinogen Dipstick 1.0 mg/dL (0.2 mg/dL) Urine Leukocyte Esterase Moderate (NEG) Urine RBC 6-10 /HPF (0-2) Urine WBC Tntc /HPF (0-4) Urine Squamous Epithelial Cells Few /LPF Urine Bacteria Many /HPF (0-FEW) Urine Mucus Slight /LPF Urine Opiates Screen Neg (NEG) Urine Methadone Screen Neg (NEG) Urine Barbiturates Neg (NEG) Urine Phencyclidine Screen Neg (NEG) Urine Amphetamine/Methamphetamine Neg (NEG) Urine Benzodiazepines Screen Neg (NEG) Urine Cocaine Screen Neg (NEG) Urine Cannabinoids Screen Neg (NEG) Urine Ethyl Alcohol Neg (NEG) Sodium Level 126 mmol/L (136-145) 129 mmol/L (136-145) Potassium Level 3.8 mmol/L (3.5-5.1) 3.7 mmol/L (3.5-5.1) Chloride Level 92 mmol/L (98-107) 95 mmol/L (98-107) Carbon Dioxide Level 27 mmol/L (21-32) 24 mmol/L (21-32) Anion Gap 7 (6-14) 10 (6-14) Blood Urea Nitrogen 8 mg/dL (8-26) 8 mg/dL (8-26) Creatinine 0.9 mg/dL (0.7-1.3) 0.6 mg/dL (0.7-1.3) Estimated GFR (Cockcroft-Gault) 85.5 136.5 Glucose Level 114 mg/dL (70-99) 92 mg/dL (70-99) Calcium Level 8.3 mg/dL (8.5-10.1) 8.1 mg/dL (8.5-10.1) White Blood Count 10.6 x10^3/uL (4.0-11.0) Red Blood Count 3.81 x10^6/uL (4.30-5.70) Hemoglobin 12.4 g/dL (13.0-17.5) Hematocrit 34.9 % (39.0-53.0) Mean Corpuscular Volume 92 fL (79-100) Mean Corpuscular Hemoglobin 33 pg (25-35) Mean Corpuscular Hemoglobin Concent 36 g/dL (31-37) Red Cell Distribution Width 13.9 % (11.5-14.5) Platelet Count 158 x10^3/uL (140-400) Neutrophils (%) (Auto) 83 % (31-73) Lymphocytes (%) (Auto) 3 % (24-48) Monocytes (%) (Auto) 14 % (0-9) Eosinophils (%) (Auto) 0 % (0-3) Basophils (%) (Auto) 0 % (0-3) Neutrophils # (Auto) 8.8 x10^3uL (1.8-7.7) Lymphocytes # (Auto) 0.4 x10^3/uL (1.0-4.8) Monocytes # (Auto) 1.4 x10^3/uL (0.0-1.1) Eosinophils # (Auto) 0.0 x10^3/uL (0.0-0.7) Basophils # (Auto) 0.0 x10^3/uL (0.0-0.2) Segmented Neutrophils % 86 % (35-66) Band Neutrophils % 2 % (0-9) Lymphocytes % 3 % (24-48) Monocytes % 9 % (0-10) Platelet Estimate Adequate (ADEQUATE) Brief Hospital Course Mr. Villalobos is a 63 old white male who resides in a mental facility of [place], comes in because of hyponatremia 120 with "change in mental status" Got hypertonic saline and sodium is now up to 129. Lost IV line or at least he pulled it and does not want any more IV medications. He's back to his baseline. Cleared from renal to go home. To psych MHerberth, patient is on a lot of medicines that can cause hyponatremia. I'm afraid of tapering all the psych meds that he has been on for a while. This can be addressed by his appropriate psych Dr. Consults performed renal Procedures performed hypertonic saline 100 mL- sodium on discharge 129 Sodium on admission 120 Discharge Information Condition at Discharge: Improved, Stable Disposition/Orders: Other (mental facility he came from) Scheduled Carbamazepine (Tegretol) 200 Mg Tablet, 200 MG PO BID, (Reported) Entered as Reported by: JUAN ALBERTO HOWELL on 01/09/191050 Last Action: Continued on 01/09/191125 by FISH GUEVARA Diphenhydramine Hcl (Banophen) 25 Mg Tablet, 25 MG PO BID, (Reported) Entered as Reported by: JUAN ALBERTO HOWELL on 01/09/191050 Last Action: HELD on 01/09/191125 by FISH GUEVARA Haloperidol (Haloperidol) 10 Mg Tablet, 1 TAB PO QHS, #30 Ref 2 (Reported) Entered as Reported by: JUAN ALBERTO HOWELL on 01/09/191050 Last Action: Converted on 01/09/191125 by FISH GUEVARA Haloperidol (Haloperidol) 10 Mg Tablet, 1.5 TAB PO DAILY, #60 Ref 2 (Reported) Entered as Reported by: JUAN ALBERTO HOWELL on 01/09/191050 Last Action: Converted on 01/09/191125 by FISH GUEVARA Lorazepam (Lorazepam) 0.5 Mg Tablet, 1 TAB PO TID, #90 (Reported) Entered as Reported by: JUAN ALBERTO HOWELL on 01/09/191051 Last Action: HELD on 01/09/191125 by FISH GUEVARA Montelukast Sodium (Montelukast Sodium Tablet) 10 Mg Tablet, 10 MG PO HS for FOR ASTHMA, #30 Ref 0 (Reported) Entered as Reported by: JUAN ALBERTO HOWELL on 01/09/191051 Last Action: Converted on 01/09/191125 by FISH GUEVARA Trazodone Hcl (Trazodone Hcl) 150 Mg Tablet, 1 TAB PO QHS, #30 Ref 1 (Reported) Entered as Reported by: JUAN ALBERTO HOWELL on 01/09/19 105 Last Action: HELD on 01/09/191125 by FISH GUEVARA [Benzotropine] , 1 MG PO BID, (Reported) Entered as Reported by: JUAN ALBERTO HOWELL on 01/09/19 1051 Last Action: Converted on 01/09/191125 by FISH MCGILL MD Jan 10, 2019 12:23
[2019-01-10] MEDS ORDERED: CIPR500T94 PO (13:38)
--- NOTE | 2019-01-10 15:25 | NUR ---
Discharge Note: BARRIE ESPINOSA [facility] Discharge instructions and discharge home medications reviewed with patient and insurance case manager and a copy given. All questions have been answered and understanding verbalized. The following instructions and handouts were given: Curb water intake Follow up with psychiatrist regarding adjustment of meds. FF up with PCP. Call/ff up anytime if with worsening or persistence of symptoms. [facility] [place] [facility] accompanied by insurance case managerAlexa at 1405. Addendum: 01/10/19 at 1640 by SALVADOR WANG RN Telephone order received from Dr. Powell at 1549 for Ciprofloxacin 500 mg tab BID for 10 days as home med; will call patient's pharmacy and send copy to [place] [facility].
--- NOTE | 2019-01-11 06:34 | EKG ---
[facility] [address] [place] [address] Test Date: 2019-01-09 Test Time: 10:14:48 Pat Name: SYLVIA ESPINOSA Department: Room: Gender: M [employer]: : [id number] Requested By: MAIKEL BRAGG Order Number: [id number] Reading MD: Measurements Intervals [place] Rate: 110 P: 53 MD: 146 QRS: 48 QRSD: 86 T: 25 QT: 294 QTc: 403 Interpretive Statements SINUS TACHYCARDIA OTHERWISE NORMAL ECG RI6.01 Unconfirmed report No previous ECG available for comparison
== END 2019-01-10 14:00 | disposition home or self-care (01) | DRG 643 ==
LOC: ER 10:06 → 6 SOUTH 11:53
PROVIDERS: ADMIT Internal Medicine; ATTEND Internal Medicine
DX: E22.2 Syndrome of inappropriate secretion of antidiuretic hormone (principal); G93.41 Metabolic encephalopathy; R65.10 Systemic inflammatory response syndrome (SIRS) of non-infectious origin without acute organ dysfunction; F20.9 Schizophrenia, unspecified; J45.909 Unspecified asthma, uncomplicated; Z87.891 Personal history of nicotine dependence; Z79.899 Other long term (current) drug therapy
CPT/HCPCS: 36415; 70450; 71045; 80048; 80053; 80307; 81001; 82550; 82962; 83605; 83690; 83880; 84443; 84484; 85007; 85025; 85610; 87040; 87086; 93005; 96365; 96368; 99292; G0480; J2543; J3370; J3490; J7030; J7040; 99291-25